=== PATIENT | female | born 1995 | race Caucasian/White ===

== ENCOUNTER 2019-02-16 22:37 | Emergency (ER) | payer OTHER ==
[~2019-02-16] VITALS: Ht 170.2 cm; Wt 63.6 kg
[2019-02-16 22:45] VITALS: TEMP 97
[2019-02-16 23:03] LABS: COLLECTION METHOD CLEAN CATCH
[2019-02-16] MEDS ORDERED: MYORISAN40 MG PO (23:10)
[2019-02-16] MEDS ORDERED: CLIMARA0.025 MG/2 TD (23:12)
[2019-02-16] MEDS ORDERED: VITAMIN B12 781 TAB PO (23:12)
[2019-02-16 23:13] LABS: MUCOUS Present /lpf; PH 6 (5-8); SQUAMOUS EPITHELIAL 0-2 /hpf; URINE APPEARANCE Clear; URINE BACTERIA Rare /hpf; URINE BILIRUBIN Negative (NEGATIVE); URINE BLOOD 3+ (NEGATIVE); URINE COLOR Yellow; URINE GLUCOSE Negative (NEGATIVE); URINE KETONE Negative (NEGATIVE); URINE LEUKOCYTE ESTERASE 3+ (NEGATIVE); URINE NITRATE Negative (NEGATIVE); URINE PROTEIN(semi-quant) 1+ (NEGATIVE); URINE RBC 20-50 /hpf; URINE UROBILINOGEN Negative (NEGATIVE)
[2019-02-16 23:45] LABS: BASO % 0.3 % (0.0-2.0); EOS % 0.5 % (0-4.0); GRAN # 5.3 (1.4-6.5); GRAN % 69.3 % (42.2-75.2); HEMATOCRIT 38.2 % (37.0-47.0); HEMOGLOBIN 13.2 g/dl (12.5-16.0); LYMPH # 1.6 (1.2-3.4); LYMPH % 21.2 % (20.0-51.0); MEAN CELL VOLUME 91 fl (80.0-100.0); MEAN CORPUSCULAR HEMOGLOBIN 32 pg (27.0-31.0); MEAN CORPUSCULAR HGB CONC 35 g/dl (33.0-37.0); MEAN PLATELET VOLUME 9.5 fl (7.4-10.4); MONO # 0.7 (0.1-0.6); MONO % 8.6 % (1.7-9.3); PLATELET COUNT 216 K/mm3 (130-400); RED BLOOD COUNT 4.18 M/mm3 (4.10-5.30); REDCELL DISTRIBUTION WIDTH-CV 11.9 % (11.5-14.5)
[2019-02-16 23:56] LABS: ALBUMIN 4.6 gm/dL (3.5-5.0); BILIRUBIN,TOTAL 0.3 mg/dL (0.0-1.0); C-REACTIVE PROTEIN 1.6 mg/dL (0.0-0.9); CALCIUM 9.9 mg/dL (8.4-10.2); CREATININE, serum 0.58 mg/dL (0.52-1.25); POTASSIUM 3.8 mmol/L (3.4-5.0); TOTAL PROTEIN 7.9 gm/dL (6.4-8.2)
[2019-02-17] MEDS ORDERED: CEFTIN 250250 MG/TAB PO (00:43)
[2019-02-17] MEDS ORDERED: ULTRAM 50MG TAB50 MG PO (00:43)
[2019-02-17 01:19] VITALS: BP 118/74; PULSE 63
== END 2019-02-17 01:16 | disposition home or self-care (01) ==
LOC: COL.ER 22:37
PROVIDERS: Nurse Practitioner
DX: N39.0 Urinary tract infection, site not specified (principal)
CPT/HCPCS: A4216; J0696; J1885; J2270; J7030

== ENCOUNTER 2019-10-21 22:29 | Observation (INO) | payer OTHER ==
[~2019-10-21] VITALS: Ht 170.2 cm; Wt 61.4 kg
[~2019-10-21 22:29] MED LIST: CEFTIN 250250 MG/TAB PO; CLIMARA0.025 MG/2 TD; MYORISAN40 MG PO; ULTRAM 50MG TAB50 MG PO; VITAMIN B12 781 TAB PO
[2019-10-22 00:40] LABS: COLLECTION METHOD CLEAN CATCH
[2019-10-22 00:44] LABS: MUCOUS Present /lpf; PH 6 (5-8); URINE APPEARANCE Clear; URINE BACTERIA None Seen /hpf; URINE BILIRUBIN Negative (NEGATIVE); URINE BLOOD Negative (NEGATIVE); URINE COLOR Yellow; URINE GLUCOSE Negative (NEGATIVE); URINE KETONE Negative (NEGATIVE); URINE LEUKOCYTE ESTERASE Negative (NEGATIVE); URINE NITRATE Negative (NEGATIVE); URINE PROTEIN(semi-quant) Negative (NEGATIVE); URINE RBC 0-2 /hpf; URINE UROBILINOGEN Negative (NEGATIVE)
[2019-10-22 01:42] LABS: BASO % 0.1 % (0.0-2.0); EOS # 0.1 (0.0-0.7); EOS % 0.5 % (0-4.0); GRAN # 7.8 (1.4-6.5); GRAN % 75.6 % (42.2-75.2); HEMATOCRIT 37.6 % (37.0-47.0); HEMOGLOBIN 13.1 g/dl (12.5-16.0); LYMPH # 1.7 (1.2-3.4); LYMPH % 16.4 % (20.0-51.0); MEAN CELL VOLUME 90 fl (80.0-100.0); MEAN CORPUSCULAR HEMOGLOBIN 31 pg (27.0-31.0); MEAN CORPUSCULAR HGB CONC 35 g/dl (33.0-37.0); MEAN PLATELET VOLUME 8.9 fl (7.4-10.4); MONO # 0.7 (0.1-0.6); PLATELET COUNT 248 K/mm3 (130-400); RED BLOOD COUNT 4.19 M/mm3 (4.10-5.30); REDCELL DISTRIBUTION WIDTH-CV 11.5 % (11.5-14.5)
[2019-10-22 01:51] LABS: ALBUMIN 4.5 gm/dL (3.5-5.0); BILIRUBIN,TOTAL 0.2 mg/dL (0.0-1.0); CALCIUM 9.6 mg/dL (8.4-10.2); CREATININE, serum 0.58 (0.52-1.25); POTASSIUM 4.2 mmol/L (3.4-5.0); TOTAL PROTEIN 7.5 gm/dL (6.4-8.2)
--- NOTE | 2019-10-22 05:11 | NUR ---
Pt. arrived to the floor via wheel chair. Pt. able to ambulated to the bed independently. Pt. is A&OX3, assessment complete. IV to lt. ac patent. Pt. reports pain at a 3 on pain scale. Pt. denies further needs, call light within reach.
[2019-10-22 05:20] VITALS: BP 107/58; PULSE 56; TEMP 98
--- NOTE | 2019-10-22 05:50 | NUR ---
Pt. has urinated 100 mls. Pt. denies pain. Will continue to monitor.
--- NOTE | 2019-10-22 08:00 | NUR ---
Patient in bed resting. Alert and oriented x 3. Shift assessment complete. Fluids infusing via pump to left AC per orders. Denies further needs at this time. Will continue to monitor.
[2019-10-22 08:19] VITALS: BP 109/55; PULSE 57; TEMP 97.8
--- NOTE | 2019-10-22 09:30 | NUR ---
MARÍA and mower sharpener met with pt to discuss discharge planning. Pt lives in [place] with her . Prior to admission pt was independent in ADLs and does not use any DME. Pt's PCM is out of [facility]. She also normally recevies prescriptions from [facility], unless it is an emergency, then she uses [facility], [facility] [place] [facility]. Denies any financial concerns at this time. Pt does not have a DPOA at this time and is not interested in obtaining one at this time. Pt plans to return home with her at discharge. Denies any further questions or concerns at this time. SW to continue to follow for discharge needs.
--- NOTE | 2019-10-22 09:32 | NUR ---
First visit from the paint factory worker. No needs right now.
[2019-10-22 12:00] VITALS: BP 96/55; PULSE 63; TEMP 98.1
[2019-10-22 16:29] VITALS: BP 96/41; PULSE 45; TEMP 97.5
--- NOTE | 2019-10-22 18:26 | NUR ---
Patient has done well throughout the day. Patient tolerating diet with some abdominal pain after meals. Has requested pain medication throughout the day, medications given per orders. Denies further needs at this time. Will report off to police shift commander.
--- NOTE | 2019-10-22 20:00 | NUR ---
Patient ambulating in hallway. Still has not had a BM, but is passing gas. Reports pain to right lower abdomen, tender when palpated by her umbilicus. SL to left AC without redness or swelling.
[2019-10-22 21:53] VITALS: BP 121/65; PULSE 55; TEMP 97.8
--- NOTE | 2019-10-22 22:05 | NUR ---
Dr Tim notified of patients interest in drinking Mag Citrate to facilitate BM. New order recieved.
--- NOTE | 2019-10-22 22:10 | NUR ---
1 bottle of mag citrate given at this time.
[2019-10-23 01:13] VITALS: BP 99/49; PULSE 59; TEMP 97.8
[2019-10-23 04:06] VITALS: BP 113/39; PULSE 64; TEMP 97.8
--- NOTE | 2019-10-23 05:00 | NUR ---
PATIENT REPORTS SMALL STOOL X2. STILL HAS RT LOWER QUAD PAIN TO HER UMBILICUS. OUT IN HALLWAY AMBULATING.
--- NOTE | 2019-10-23 05:44 | NUR ---
PATIENT REPORTS GOOD RESULTS FROM MAG CITRATE. STILL REPORTS DULL PAIN TO RIGHT ABDOMEN.
[2019-10-23 06:56] LABS: HEMATOCRIT 37.3 % (37.0-47.0); HEMOGLOBIN 12.8 g/dl (12.5-16.0); MEAN CELL VOLUME 91 fl (80.0-100.0); MEAN CORPUSCULAR HEMOGLOBIN 31 pg (27.0-31.0); MEAN CORPUSCULAR HGB CONC 34 g/dl (33.0-37.0); MEAN PLATELET VOLUME 9.3 fl (7.4-10.4); PLATELET COUNT 240 K/mm3 (130-400); RED BLOOD COUNT 4.12 M/mm3 (4.10-5.30); REDCELL DISTRIBUTION WIDTH-CV 11.7 % (11.5-14.5)
[2019-10-23 08:07] VITALS: BP 114/56; PULSE 59; TEMP 98.2
--- NOTE | 2019-10-23 08:20 | NUR ---
Patient in bed resting. Alert and oriented x 3. Shift assessment complete. Patient states she did have a BM this AM. States pain 5/10 to RLQ and umbilicus. Medications given per orders. States her pain is about the same as when she first came in to hospital. Denies further needs at this time.
--- NOTE | 2019-10-23 10:00 | NUR ---
Discharge education provided to patient. Educated on when to call providers and follow up appointment. INT to left AC discotinued. Catheter tip intact. Denies further needs at this time. Educated on antibiotic. All questions answered. Patient ambulated out with spouse.
[2019-10-23] MEDS ORDERED: AMOXICILLIN 8751 TAB PO (10:15)
== END 2019-10-23 10:00 | disposition home or self-care (01) ==
LOC: COL.ER 22:29 → SURG 10-22 03:15
PROVIDERS: Emergency Medicine; ADMIT Surgery
DX: R10.9 Unspecified abdominal pain (principal); G40.909 Epilepsy, unspecified, not intractable, without status epilepticus; J45.909 Unspecified asthma, uncomplicated; A18.01 Tuberculosis of spine
CPT/HCPCS: A4216; G0008; G0378; J0692; J1170; J2405; J3010; J7030; Q9967